=== PATIENT | male | born 1985 | race Caucasian/White ===

== ENCOUNTER 2020-10-18 00:45 | Emergency (ER) | payer MEDICAID ==
[~2020-10-18] VITALS: Ht 167.6 cm; Wt 78.0 kg
[2020-10-18 00:51] VITALS: BP 146/50
== END 2020-10-18 01:58 | disposition left against medical advice (07) ==
LOC: ER 00:45
DX: R05 Cough (principal); M79.18 Myalgia, other site
CPT/HCPCS: 99283

== ENCOUNTER 2021-02-23 07:56 | Emergency (ER) | payer MEDICAID ==
[~2021-02-23] VITALS: Ht 165.1 cm; Wt 77.0 kg
[2021-02-23] MEDS ORDERED: FAMOTIDINE 20MG/2ML VIAL IV STA (08:21)
[2021-02-23] MEDS ORDERED: SODIUM CHLORIDE 0.9% 1,000 ML IV ONE (08:30)
[2021-02-23 09:33] LABS: BASOPHILS % 0.9 % (0.0-2.0); EOSINOPHILS % 3.2 % (0.0-5.0); HEMATOCRIT. 40.6 % (42.0-52.0); HEMOGLOBIN. 14.4 g/dL (14.0-18.0); LYMPHOCYTES % 29.2 % (20.0-50.0); MEAN CORPUSCULAR VOLUME 87.4 fL (80.0-94.0); MEAN PLATELET VOLUME 9.1 fl (7.4-10.4); MONOCYTES % 10.2 % (2.0-8.0); NEUTROPHILS % 56.5 % (40.0-76.0); PLATELET 263 x1000/uL (130-400); RED BLOOD CELL COUNT 4.64 mill/uL (4.7-6.1); RED CELL DISTRIBUTION WIDTH 13.3 % (11.6-14.6)
[2021-02-23 09:40] LABS: CHLORIDE 110 mEq/L (98-107)
[2021-02-23 09:44] LABS: ETHANOL BLOOD < 10 mg/dL
[2021-02-23 09:49] LABS: CLARITY URINE CLEAR (CLEAR); COLOR URINE YELLOW (YELLOW); KETONES URINE NEGATIVE (NEGATIVE); LEUKOCYTE ESTERASE URINE NEGATIVE (NEGATIVE); NITRITE URINE NEGATIVE (NEGATIVE); OCCULT BLOOD URINE NEGATIVE (NEGATIVE); PH URINE 5.5 (4.5-8.0); PROTEIN URINE NEGATIVE (NEGATIVE); SPECIFIC GRAVITY URINE 1.025 (1.005-1.030); UROBILINOGEN URINE 0.2 E.U./dL (0.2-1.0)
[2021-02-23 10:07] LABS: METHADONE URINE SCREEN NEGATIVE (NEGATIVE); OPIATES URINE SCREEN NEGATIVE (NEGATIVE); PHENCYCLIDINE URINE SCREEN NEGATIVE (NEGATIVE)
[2021-02-23 10:08] LABS: *AMPHETAMINES SCREEN URINE PRESUMTIVE POSITIVE (NEGATIVE); *BARBITURATES SCREEN URINE NEGATIVE (NEGATIVE); *BENZODIAZEPINES SCREEN URINE NEGATIVE (NEGATIVE); *COCAINE SCREEN URINE NEGATIVE (NEGATIVE); CANNABINOID URINE SCREEN PRESUMTIVE POSITIVE (NEGATIVE)
[2021-02-23] MEDS ORDERED: ONDA8TAB13 MT (10:55)
[2021-02-23] MEDS ORDERED: HYDR-4001 MT (10:56)
[2021-02-23] MEDS ORDERED: VALA100044 MT (10:59)
[2021-02-23 11:31] VITALS: BP 122/74
== END 2021-02-23 12:21 | disposition home or self-care (01) ==
LOC: ER 07:56
DX: K85.90 Acute pancreatitis without necrosis or infection, unspecified (principal); F15.10 Other stimulant abuse, uncomplicated; F16.10 Hallucinogen abuse, uncomplicated; F12.10 Cannabis abuse, uncomplicated
CPT/HCPCS: 36415; 71045; 76705; 80053; 80305; 80320; 81003; 83690; 84484; 85025; 93005; 96361; 96374; 99285; J3490; J7030; G0480

== ENCOUNTER 2021-07-11 22:49 | Emergency (ER) | payer MEDICAID ==
[~2021-07-11] VITALS: Ht 165.1 cm; Wt 73.0 kg
[~2021-07-11 22:49] MED LIST: HYDR-4001 MT; ONDA8TAB13 MT; VALA100044 MT
[2021-07-11] MEDS ORDERED: SODIUM CHLORIDE 0.9% 1,000 ML IV ONE (23:45)
[2021-07-12 00:25] VITALS: BP 128/67
== END 2021-07-12 00:32 | disposition left against medical advice (07) ==
LOC: ER 22:49
DX: R07.89 Other chest pain (principal); F15.10 Other stimulant abuse, uncomplicated; R06.02 Shortness of breath; Z79.899 Other long term (current) drug therapy
CPT/HCPCS: 93005; 99283; J7030

== ENCOUNTER 2021-08-06 16:21 | Inpatient (IN) | payer MEDICAID ==
[~2021-08-06] VITALS: Ht 165.1 cm; Wt 77.6 kg
[2021-08-06] MEDS ORDERED: HALOPERIDOL LACTATE 5MG/ML VIAL IM STA (17:46)
[2021-08-06] MEDS ORDERED: LORAZEPAM 2MG/ML CPJ IM STA ×2 (17:46→22:13)
[2021-08-06] MEDS ORDERED: DIPHENHYDRAMINE 50MG/ML VIAL IM STA (17:46)
[2021-08-06] MEDS ORDERED: SODIUM CHLORIDE 0.9% 1,000 ML IV ONE ×2 (18:00→20:15)
[2021-08-06 18:13] LABS: BASOPHILS % 0.4 % (0.0-2.0); EOSINOPHILS % 0.2 % (0.0-5.0); HEMOGLOBIN. 16.1 g/dL (14.0-18.0); LYMPHOCYTES % 10.1 % (20.0-50.0); MEAN CORPUSCULAR HEMOGLOBIN 29.7 pg (28.0-32.0); MEAN CORPUSCULAR VOLUME 88.7 fL (80.0-94.0); MEAN PLATELET VOLUME 9.6 fl (7.4-10.4); MONOCYTES % 8.5 % (2.0-8.0); NEUTROPHILS % 80.8 % (40.0-76.0); PLATELET 340 x1000/uL (130-400); RED BLOOD CELL COUNT 5.41 mill/uL (4.7-6.1); RED CELL DISTRIBUTION WIDTH 13.8 % (11.6-14.6)
[2021-08-06 18:18] LABS: CHLORIDE 107 mEq/L (98-107)
[2021-08-06 18:23] LABS: ETHANOL BLOOD < 10 mg/dL
[2021-08-06 18:40] LABS: CREATINE KINASE 2588 IU/L (39-308)
[2021-08-06 20:45] LABS: CLARITY URINE CLEAR (CLEAR); COLOR URINE DARK YELLOW (YELLOW); KETONES URINE 1+ (NEGATIVE); LEUKOCYTE ESTERASE URINE TRACE (NEGATIVE); NITRITE URINE NEGATIVE (NEGATIVE); OCCULT BLOOD URINE 1+ (NEGATIVE); PROTEIN URINE 2+ (NEGATIVE); SPECIFIC GRAVITY URINE 1.033 (1.005-1.030)
[2021-08-06 20:57] LABS: *AMPHETAMINES SCREEN URINE PRESUMTIVE POSITIVE (NEGATIVE); OPIATES URINE SCREEN NEGATIVE (NEGATIVE); PHENCYCLIDINE URINE SCREEN NEGATIVE (NEGATIVE)
[2021-08-06 20:58] LABS: *BARBITURATES SCREEN URINE NEGATIVE (NEGATIVE); *BENZODIAZEPINES SCREEN URINE NEGATIVE (NEGATIVE); *COCAINE SCREEN URINE NEGATIVE (NEGATIVE); CANNABINOID URINE SCREEN PRESUMTIVE POSITIVE (NEGATIVE); METHADONE URINE SCREEN NEGATIVE (NEGATIVE)
[2021-08-07 04:05] VITALS: BP 110/76
[2021-08-07] MEDS ORDERED: ACETAMINOPHEN 325MG TABLET PO PRN (05:30)
[2021-08-07] MEDS ORDERED: ONDANSETRON HCL 4MG/2ML INJ IV PRN (05:30)
[2021-08-07] MEDS ORDERED: LORAZEPAM 1MG TABLET PO PRN (05:30)
[2021-08-07] MEDS ORDERED: SODIUM CHLORIDE 0.9% 1,000 ML IV SCH (06:00)
[2021-08-07 06:47] LABS: BASOPHILS % 0.4 % (0.0-2.0); HEMATOCRIT. 39.7 % (42.0-52.0); HEMOGLOBIN. 13.5 g/dL (14.0-18.0); LYMPHOCYTES % 22.1 % (20.0-50.0); MEAN CORPUSCULAR HEMOGLOBIN 30.5 pg (28.0-32.0); MEAN CORPUSCULAR VOLUME 89.5 fL (80.0-94.0); MEAN PLATELET VOLUME 9.3 fl (7.4-10.4); MONOCYTES % 13.9 % (2.0-8.0); NEUTROPHILS % 62.6 % (40.0-76.0); PLATELET 221 x1000/uL (130-400); RED BLOOD CELL COUNT 4.43 mill/uL (4.7-6.1)
[2021-08-07 06:55] LABS: CHLORIDE 116 mEq/L (98-107)
[2021-08-07 07:00] LABS: LDL CHOLESTEROL 78 mg/dL (5-100)
[2021-08-07 07:02] LABS: HDL CHOLESTEROL 51 mg/dL (40-59)
[2021-08-07 08:00] VITALS: BP 127/70
[2021-08-07 12:00] VITALS: BP 107/69
[2021-08-07 12:25] LABS: CREATINE KINASE 10410 IU/L (39-308)
== END 2021-08-07 13:25 | disposition left against medical advice (07) | DRG 770 ==
LOC: ER 16:21 → 6WST 20:16 → ENRESERV 08-07 02:43
PROVIDERS: ADMIT Internal Medicine; ATTEND Internal Medicine
DX: F10.129 Alcohol abuse with intoxication, unspecified (principal); M62.82 Rhabdomyolysis; F15.129 Other stimulant abuse with intoxication, unspecified; F17.200 Nicotine dependence, unspecified, uncomplicated; R74.01 Elevation of levels of liver transaminase levels; Z79.899 Other long term (current) drug therapy; Z53.21 Procedure and treatment not carried out due to patient leaving prior to being seen by health care provider
CPT/HCPCS: 36415; 80053; 80061; 80305; 80320; 81003; 82550; 85025; 99285; J1200; J1630; J2060; J7030; G0480

== ENCOUNTER 2021-10-02 17:10 | Emergency (ER) | payer MEDICAID ==
[~2021-10-02] VITALS: Ht 172.7 cm; Wt 77.0 kg
[2021-10-02 17:28] VITALS: BP 105/63
== END 2021-10-02 18:50 | disposition left against medical advice (07) ==
LOC: ER 17:10
DX: F10.129 Alcohol abuse with intoxication, unspecified (principal); Y90.0 Blood alcohol level of less than 20 mg/100 ml; Z53.21 Procedure and treatment not carried out due to patient leaving prior to being seen by health care provider
CPT/HCPCS: 99283

== ENCOUNTER 2022-05-11 17:44 | Emergency (ER) | payer MEDICAID ==
[~2022-05-11] VITALS: Ht 165.1 cm; Wt 72.0 kg
[2022-05-11 17:55] VITALS: BP 119/78
[2022-05-12] MEDS ORDERED: OXYC-100 MT ×2 (11:14→12:28)
[2022-05-12] MEDS ORDERED: IBUP-2028 MT (11:14)
[2022-05-12] MEDS ORDERED: OXYC-485 MT (12:46)
== END 2022-05-11 20:41 | disposition left against medical advice (07) ==
LOC: ER 17:44
DX: Z53.21 Procedure and treatment not carried out due to patient leaving prior to being seen by health care provider (principal)

== ENCOUNTER 2022-05-12 06:42 | Emergency (ER) | payer MEDICAID ==
[~2022-05-12] VITALS: Ht 165.1 cm; Wt 73.0 kg
[2022-05-12] MEDS ORDERED: ACETAMINOPHEN 325MG TABLET PO ONE (07:15)
[2022-05-12] MEDS ORDERED: IBUPROFEN 400MG TABLET PO ONE (07:15)
[2022-05-12] MEDS ORDERED: OXYCODONE HCL 10MG TABLET SR 12HR PO ONE (07:45)
[2022-05-12] MEDS ORDERED: IBUP-2028 MT (11:14)
[2022-05-12] MEDS ORDERED: OXYC-100 MT ×2 (11:14→12:28)
[2022-05-12 12:00] VITALS: BP 117/76
[2022-05-12] MEDS ORDERED: OXYC-485 MT (12:46)
== END 2022-05-12 07:20 | disposition home or self-care (01) ==
LOC: ER 06:42
DX: S52.91XA Unspecified fracture of right forearm, initial encounter for closed fracture (principal); F17.200 Nicotine dependence, unspecified, uncomplicated; F12.10 Cannabis abuse, uncomplicated; Y93.55 Activity, bike riding; Y93.89 Activity, other specified; Y92.89 Other specified places as the place of occurrence of the external cause; Y99.8 Other external cause status
CPT/HCPCS: 29125; 73070; 73090; 73110; 73130; 99284; Z7610; A4565

== ENCOUNTER 2023-05-06 10:58 | Emergency (ER) | payer MEDICAID ==
[~2023-05-06] VITALS: Ht 165.1 cm; Wt 74.0 kg
[~2023-05-06 10:58] MED LIST changes: +IBUP-2028 MT; +OXYC-100 MT; +OXYC-485 MT; +TRAM50TA3 MT
[2023-05-06 11:04] VITALS: BP 126/96; PULSE 115; RESP 16; TEMP 98.5; O2SAT 98
[2023-05-06 12:28] LABS: BASOPHILS % 0.5 % (0.0-2.0); EOSINOPHILS % 0.2 % (0.0-5.0); HEMATOCRIT. 44.3 % (42.0-52.0); HEMOGLOBIN. 14.9 g/dL (14.0-18.0); LYMPHOCYTES % 18.1 % (20.0-50.0); MEAN CORPUSCULAR HEMOGLOBIN 30.2 pg (28.0-32.0); MEAN CORPUSCULAR HGB CONC 33.7 g/dL (31.0-37.0); MEAN CORPUSCULAR VOLUME 89.6 fL (80.0-94.0); MEAN PLATELET VOLUME 8.6 fl (7.4-10.4); MONOCYTES % 9.5 % (2.0-8.0); NEUTROPHILS % 71.7 % (40.0-76.0); PLATELET 378 x1000/uL (130-400); RED BLOOD CELL COUNT 4.94 mill/uL (4.7-6.1); RED CELL DISTRIBUTION WIDTH 14.5 % (11.6-14.6); WHITE BLOOD COUNT 10.6 x1000/uL (4.5-11.0)
[2023-05-06 12:32] LABS: CHLORIDE 102 mEq/L (98-107); INDEX HEMOLYSI 1 (1-3); INDEX ICTERIC 1 (1-4); INDEX LIPEMIC 1 (1-3); POTASSIUM 3.7 mEq/L (3.5-5.1); SODIUM 138 mEq/L (136-145)
[2023-05-06 12:40] LABS: PROTHROMBIN TIME 10.3 sec (9.6-11.0)
[2023-05-06 12:42] LABS: ALANINE AMINOTRANSFERASE 40 IU/L (13-61); ALBUMIN 4.3 g/dL (3.4-5.0); ASPARTATE AMINOTRANSFERASE 12 IU/L (15-37); BILIRUBIN TOTAL 1.8 mg/dL (0.1-1.0); CALCIUM 9.8 mg/dL (8.5-10.1); CARBON DIOXIDE 25 mEq/L (21-32); CREATININE 1.1 mg/dL (0.6-1.3); PROTEIN TOTAL 8.1 g/dL (6.0-8.3); TROPONIN I HIGH SENSITIVITY 8 ng/L (<78); UREA NITROGEN BLOOD 21 mg/dL (7-21)
[2023-05-06 13:43] LABS: GLUCOSE 104 mg/dL (70-105)
== END 2023-05-06 16:27 | disposition home or self-care (01) ==
LOC: ER 12:18
DX: R06.02 Shortness of breath (principal); Z98.890 Other specified postprocedural states; R07.89 Other chest pain; J02.9 Acute pharyngitis, unspecified
CPT/HCPCS: 36415; 71045; 80053; 84484; 85025; 93005; 99285

== ENCOUNTER 2023-05-24 17:58 | Emergency (ER) | payer MEDICAID ==
[~2023-05-24] VITALS: Ht 170.2 cm; Wt 64.0 kg
[2023-05-24 18:01] VITALS: BP 103/70; RESP 18; TEMP 98; O2SAT 99
[2023-05-24 18:02] VITALS: PULSE 99
== END 2023-05-25 02:06 | disposition home or self-care (01) ==
LOC: ER 17:58
DX: S20.212A Contusion of left front wall of thorax, initial encounter (principal); Z79.899 Other long term (current) drug therapy; X58.XXXA Exposure to other specified factors, initial encounter; Y93.89 Activity, other specified; Y92.89 Other specified places as the place of occurrence of the external cause; Y99.8 Other external cause status
CPT/HCPCS: 71045; 93005; 99283